=== PATIENT | female | born 1955 | race Caucasian/White ===

== ENCOUNTER → 2018-06-14 | Outpatient (CLI) | payer OTHER ==
[2015-11-19 11:00] VITALS: BP 103/65
[~2018-06-14] MED LIST: CARI350T PO; CARI350T14 PO; HYDR-3164 PO; IOHEXOL 300 MG/ML 100ML VIAL. IV ONE; LEVO137T3; LEVO150T5 PO; LEVO500T59 PO; ONDA4TAB10 PO; ONDA4TAB7 PO; OXYM30TA13 PO; POTA20TA82 PO; SERT100T PO; SERT50TA PO; TOPI200T6
--- NOTE | 2018-06-14 11:53 | KCIC ---
EXAM: Thoracic spine, 3 views. HISTORY: Pain. COMPARISON: 01/15/2017 FINDINGS: 3 views of the thoracic spine are obtained. There is mild S-shaped thoracic scoliosis. There is no significant thoracic listhesis. No thoracic fracture is seen. There is a mild chronic appearing L1 compression fracture. There are calcifications and clips. There is a radiodense foreign body overlying the left flank soft tissues. IMPRESSION: 1. Mild chronic appearing L1 compression fracture. 2. Mild S-shaped thoracic scoliosis. Electronically signed by: Sharda Ovalle MD (06/14/2018 11:51 AM) [place] [id number]
--- NOTE | 2018-06-14 12:29 | KCIC ---
PQRS Compliance Statement: One or more of the following individualized dose reduction techniques were utilized for this examination: 1. Automated exposure control 2. Adjustment of the mA and/or kV according to patient size 3. Use of iterative reconstruction technique CT angiography abdomen June 14, 2018 INDICATION: Right-sided abdominal pain. History of superior mesenteric artery stent. COMPARISON: CT abdomen/pelvis August 25, 2013 TECHNIQUE: Multiple axial CT images of the abdomen were obtained after the intravenous administration of 100 cc Omnipaque 300. Maximum intensity projection images were obtained. FINDINGS: Lung bases are clear. Heart size is within normal limits. No suspicious hepatic lesion is identified. Gallbladder surgically absent. There is mild intrahepatic and extrahepatic biliary ductal dilatation with common bile duct measuring up to 16 mm. Findings are suggestive of reservoir effect status post cholecystectomy. There is a cyst within the inferior spleen measuring up to 4.6 cm which may represent a lymphangioma, hemangioma or simple epithelial cyst. Adrenal glands normal in appearance. No peripancreatic inflammatory changes are identified. Pancreas is otherwise normal in appearance. There is a 3 cm cyst in the lateral interpolar right kidney. No suspicious renal mass. Kidneys enhance symmetrically. No hydronephrosis. There is a small hiatal hernia. Small large bowel are normal in caliber. No evidence for bowel obstruction or inflammation. There is no free fluid. No free intraperitoneal air. Abdominal aorta at the aortic hiatus measures 2.0 x 1.8 cm. The celiac axis is widely patent. Common hepatic, splenic artery and left gastric artery are widely patent. Origin of the superior mesenteric artery is widely patent. Superior mesenteric artery is normal in course and caliber. Inferior mesenteric artery is widely patent. Origins of the renal arteries are widely patent. Infrarenal abdominal aorta measures 1.3 x 1.2 cm. There is a small fat-containing umbilical hernia. No suspicious osseous abnormality is identified. There is a surgical clip in the left ventral mesentery. IMPRESSION: No evidence for aortic dissection or aneurysm. Superior mesenteric artery is widely patent. TECHNIQUE: Electronically signed by: Malena Patricia MD (06/14/2018 12:26 PM) [id number]
== END | disposition home or self-care (01) ==
LOC: KCIC CT 10:30
PROVIDERS: ATTEND Family Medicine
DX: K42.9 Umbilical hernia without obstruction or gangrene (principal); K44.9 Diaphragmatic hernia without obstruction or gangrene; N28.1 Cyst of kidney, acquired; K83.8 Other specified diseases of biliary tract; M41.84 Other forms of scoliosis, thoracic region; M84.48XA Pathological fracture, other site, initial encounter for fracture; Z90.49 Acquired absence of other specified parts of digestive tract
CPT/HCPCS: 72072; 74175; Q9967

== ENCOUNTER → 2020-10-10 | Outpatient (CLI) | payer MEDICARE ==
[2015-11-19 11:00] VITALS: BP 103/65
[~2020-10-10] MED LIST changes: +CONTRAST GIVEN. MC PRN; +POTA20TA4 PO; -POTA20TA82 PO
--- NOTE | 2020-10-11 10:32 | KCIC ---
CT LUMBAR SPINE WITHOUT AND WITH IV CONTRAST History:Reason: Compression fx. Lspine, Pt fell 2019 / Spl. Instructions: 80mL Omni 300. Auth/or ariel for w/o/w / History: Multiple back surgeries, last one about 10 yrs. ago. Technique: Noncontrast CT was performed of the lumbar spine. Multiplanar reconstructions were perform ed. Exposure: One or more of the following individualized dose reduction techniques were utilized for thi s examination: 1. Automated exposure control 2. Adjustment of the mA and/or kV according to patient size 3. Use of iterative reconstruction technique. Comparison: CT June 14, 2018 Findings: Mild L2 superior endplate compression fracture approximately 25 percent height loss anteriorly. Minim al retropulsion. The fracture is new compared to 2019. Chronic L1 superior endplate compression fract ure. Intervertebral fusion L5-S1, unchanged. Right hemilaminectomy L5. T12-L1: Small disc bulge. No canal or neuroforaminal narrowing. L1-L2: Small disc bulge. No canal or neuroforaminal narrowing. L2-L3: Minimal disc bulge. No canal narrowing. No neuroforaminal narrowing. L3-L4: Small disc bulge. Mild facet arthropathy. No canal or neuroforaminal narrowing. L4-L5: Broad-based disc bulge eccentric to the right. Moderate to advanced facet arthropathy. No can al narrowing. Right hemilaminectomy. Right foraminal disc protrusion. Mild right neuroforaminal narro wing. No left neuroforaminal narrowing. L5-S1: Posterior decompression. Right posterior lateral thecal sac outpouching, unchanged. No canal narrowing. Intervertebral fusion. No neuroforaminal narrowing. Impression: 1. Interval development L2 mild superior endplate compression fracture, potentially subacute to chromosomal disorders counselor [place] although age indeterminate. Recommend correlation with point tenderness. If persistent clinical c oncern, MRI can better evaluate. 2. Chronic L1 mild compression fracture. 3. Multilevel lumbar spondylosis. 4. Postoperative changes lower lumbar spine. Electronically signed by: Jose C Mak DO (10/11/2020 10:30 AM) [id number]
== END ==
LOC: KCIC CT 15:06
PROVIDERS: ATTEND Family Medicine
DX: S32.020A Wedge compression fracture of second lumbar vertebra, initial encounter for closed fracture (principal); S32.010A Wedge compression fracture of first lumbar vertebra, initial encounter for closed fracture; M47.816 Spondylosis without myelopathy or radiculopathy, lumbar region; M51.25 Other intervertebral disc displacement, thoracolumbar region; Z98.890 Other specified postprocedural states; X58.XXXA Exposure to other specified factors, initial encounter; Y93.89 Activity, other specified; Y92.89 Other specified places as the place of occurrence of the external cause; Y99.8 Other external cause status
CPT/HCPCS: 72133; 82565; Q9967